=== PATIENT | female | born 1975 | race African-American/Black ===

== ENCOUNTER → 2019-07-02 | Outpatient (CLI) | payer OTHER | LOC: RAD 08:57 | DX: M53.3 Sacrococcygeal disorders, not elsewhere classified (principal) ==

== ENCOUNTER → 2019-11-19 | Outpatient (CLI) | payer OTHER | LOC: LAB 09:40 | PROVIDERS: ATTEND Nurse Practitioner | DX: R05 Cough (principal); R53.83 Other fatigue; R11.0 Nausea; Z20.828 Contact with and (suspected) exposure to other viral communicable diseases ==

== ENCOUNTER → 2020-01-04 | Outpatient (CLI) | payer OTHER ==
[2020-01-04 13:11] LABS: % SATURATION 16 % (20-39); IRON 54 ug/dL (50-170); TIBC 339 ug/dL (250-450)
[2020-01-04 13:23] LABS: ALBUMIN 3.8 g/dL (3.4-5.0); ANION GAP 8 mmol/L (7-16); BUN 11 mg/dL (7-18); CALCIUM 8.8 mg/dL (8.5-10.1); CHLORIDE 103 mmol/L (98-107); CO2 29 mmol/L (21-32); CREATININE 0.8 mg/dL (0.6-1.0); GLUCOSE 83 mg/dL (74-106); POTASSIUM 4.1 mmol/L (3.5-5.1); SGOT 15 U/L (15-37); SGPT 20 U/L (30-65); SODIUM 140 mmol/L (136-145); TOTAL BILIRUBIN 0.4 mg/dL (0.2-1.0)
[2020-01-04 13:49] LABS: TSH 1.735 uIU/mL (0.358-3.740)
[2020-01-04 14:06] LABS: ABSOLUTE NEUTROPHILS 3.9 thou/uL (1.4-8.2); BASOPHILS 0.6 % (0.0-2.0); EOSINOPHILS 0.6 % (0.0-3.0); HEMATOCRIT 39.1 % (37.0-47.0); HEMOGLOBIN 12.9 gm/dL (12.0-15.0); LYMPHOCYTES 22.2 % (24.0-44.0); MCH 28.6 pg (26.0-34.0); MCHC 32.9 g/dL (28.0-37.0); MCV 86.9 fL (80.0-100.0); PLATELET COUNT 220 thou/uL (150-400); POLYS 69.6 % (36.0-66.0); WBC 5.6 thou/uL (4.0-11.0)
[2020-01-04 14:15] LABS: ESR (SEDRATE) 6 mm/hour (0-19)
[2020-01-06 10:08] LABS: ANA INTERPRETATION Negative (Negative); ANTI-DNA SCREEN <1 IU/mL (0-9); ANTI-RNP 0.2 AI (0.0-0.9)
== END ==
LOC: CAT 11:55
PROVIDERS: ATTEND Nurse Practitioner
DX: S32.2XXA Fracture of coccyx, initial encounter for closed fracture (principal); M47.814 Spondylosis without myelopathy or radiculopathy, thoracic region; L65.9 Nonscarring hair loss, unspecified; D64.9 Anemia, unspecified; E55.9 Vitamin D deficiency, unspecified; E53.8 Deficiency of other specified B group vitamins; R23.9 Unspecified skin changes; X58.XXXA Exposure to other specified factors, initial encounter; Y93.89 Activity, other specified; Y92.89 Other specified places as the place of occurrence of the external cause; Y99.8 Other external cause status

== ENCOUNTER → 2020-02-29 | Outpatient (CLI) | payer OTHER | LOC: LAB 09:30 | PROVIDERS: ATTEND Nurse Practitioner | DX: Z20.828 Contact with and (suspected) exposure to other viral communicable diseases (principal) ==

== ENCOUNTER → 2020-04-25 | Outpatient (CLI) | payer OTHER | LOC: CAT 13:18 | PROVIDERS: ATTEND Internal Medicine Cardiovascular Disease | DX: Z13.6 Encounter for screening for cardiovascular disorders (principal); I25.10 Atherosclerotic heart disease of native coronary artery without angina pectoris; E78.00 Pure hypercholesterolemia, unspecified ==

== ENCOUNTER → 2020-05-12 | Outpatient (CLI) | payer OTHER ==
[2020-05-12 08:21] LABS: HEMATOCRIT 39.2 % (37.0-47.0); HEMOGLOBIN 12.8 gm/dL (12.0-15.0); MCH 27.9 pg (26.0-34.0); MCHC 32.6 g/dL (28.0-37.0); MCV 85.4 fL (80.0-100.0); RBC 4.59 mil/uL (4.20-5.00); RDW 14.9 % (10.5-14.5); WBC 4.8 thou/uL (4.0-11.0)
[2020-05-12 08:41] LABS: ALBUMIN 3.7 g/dL (3.4-5.0); ANION GAP 9 mmol/L (7-16); BUN 15 mg/dL (7-18); CALCIUM 9.2 mg/dL (8.5-10.1); CHLORIDE 106 mmol/L (98-107); CHOLESTEROL 168 mg/dL (<200); CO2 29 mmol/L (21-32); CREATININE 0.9 mg/dL (0.6-1.0); GLUCOSE 81 mg/dL (74-106); HDL CHOLESTEROL 84 mg/dL (>40); LDL CHOLESTEROL 75 mg/dL (<100); POTASSIUM 4.1 mmol/L (3.5-5.1); SGOT 13 U/L (15-37); SGPT 18 U/L (30-65); SODIUM 144 mmol/L (136-145); TOTAL BILIRUBIN 0.6 mg/dL (0.2-1.0); TOTAL PROTEIN 6.6 g/dL (6.4-8.2); TRIGLYCERIDE 47 mg/dL (<150); VLDL 9 mg/dL (<40)
[2020-05-12 09:09] LABS: FOLIC ACID 15.7 ng/mL (8.6-58.9)
== END ==
LOC: LAB 07:48
PROVIDERS: ATTEND Surgery
DX: R11.2 Nausea with vomiting, unspecified (principal); R63.4 Abnormal weight loss; Z98.84 Bariatric surgery status

== ENCOUNTER → 2020-05-18 | Outpatient (CLI) | payer OTHER | LOC: CAT 07:20 | DX: R63.4 Abnormal weight loss (principal); Z98.84 Bariatric surgery status; N83.202 Unspecified ovarian cyst, left side ==

== ENCOUNTER → 2020-06-02 | Outpatient (CLI) | payer OTHER ==
[~2020-06-02] MED LIST: DEPAKOTE ER250 MG PO; MULTI-DAY PLUS1 EACH PO; STRATTERA100 MG PO
== END ==
LOC: LAB 13:58
PROVIDERS: ATTEND Surgery
DX: Z01.812 Encounter for preprocedural laboratory examination (principal); Z20.822 Contact with and (suspected) exposure to COVID-19

== ENCOUNTER 2020-06-07 09:39 | Day surgery (SDC) | payer OTHER ==
[~2020-06-07] VITALS: Ht 160 cm; Wt 52.6 kg
--- NOTE | ~2020-06-07 | O ---
[facility] [place] [address] OPERATIVE REPORT Name: FREDERICK BRYANT Room #: 150-4 [facility] M.R.#: [id number] Admission: 06/07/20 Attend Phys: Keyon Rahman MD Discharge: Date of : 77 Report #: [id number] THIS REPORT FOR: cc: Renu Up Beth RNP Joseph, Sigi P. MD ~ DATE OF SERVICE: 06/07/2020 PREOPERATIVE DIAGNOSES: Suspected intussusception, history of gastric sleeve. POSTOPERATIVE DIAGNOSIS: Negative diagnostic laparoscopy. OPERATIVE PROCEDURE DONE: Diagnostic laparoscopy. 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 CT scan that was done showed features of questionable intussusception. The patient was advised diagnostic laparoscopy. The patient showed understanding and agreed to proceed. DESCRIPTION OF PROCEDURE: After explaining to the patient in detail and informed consent was obtained, the patient was identified in the preoperative holding area. The patient was transferred to the operating room and was placed in supine position. Sequential compressive devices were placed for DVT prophylaxis. Preoperative antibiotics were given. After induction of anesthesia, the abdomen was prepped and draped in a sterile fashion. Through a right upper quadrant 1 cm incision and using Optiview technique, peritoneal cavity was entered and pneumoperitoneum was created. Thereafter, under direct vision, another 5 mm trocar was placed in the right mid abdomen, another 5 mm trocar was placed in the left mid abdomen. On initial inspection, there were few adhesions in the left lobe of the liver. On evaluating the gastric sleeve, this appeared normal. There was no evidence of any hiatal hernia. I then inspected the small bowel from the ligament of Treitz distally after the terminal ileum, which was done twice. I also inspected the colon, which all appeared unremarkable. The spleen appeared normal. The liver appeared normal. The abdomen was then deflated. Incisions were then closed with 4-0 Monocryl. Dermabond was applied. The patient was stable at the end of the procedure. The patient was awoken from anesthesia and was transferred to the recovery room in stable condition. ESTIMATED BLOOD LOSS: Approximately 5 mL. CONDITION OF THE PATIENT: Stable. [address] [address] OPERATIVE REPORT Name: FREDERICK BRYANT Room #: 150-4 [facility]#: [id number] Admission: 06/07/20 Attend Phys: Keyon Rahman MD Discharge: Date of : 77 Report #: [id number] FLUIDS GIVEN: Per anesthesia notes. SPECIMEN SENT: None. COMPLICATIONS: None. ANESTHESIA: General anesthesia. By: [id number] Keyon Rahman MD /nt
== END 2020-06-07 13:02 | disposition home or self-care (01) ==
LOC: OR 09:39 → TBA 09:49 → OR 13:02
PROVIDERS: ATTEND Surgery
DX: R10.10 Upper abdominal pain, unspecified (principal); K66.0 Peritoneal adhesions (postprocedural) (postinfection); Z98.84 Bariatric surgery status; Z90.49 Acquired absence of other specified parts of digestive tract; F41.9 Anxiety disorder, unspecified; F32.9 Major depressive disorder, single episode, unspecified; F90.9 Attention-deficit hyperactivity disorder, unspecified type; Z88.8 Allergy status to other drugs, medicaments and biological substances; Z88.0 Allergy status to penicillin
CPT/HCPCS: 50010; 50101; 50411; 50555; 50558; 51489; 52265; 52266; 53310; 54022; 54118; 56525; 56526; 62110; 62900; 70005

== ENCOUNTER → 2020-06-09 | Outpatient (CLI) | payer OTHER ==
[2020-06-09 12:01] LABS: % SATURATION 9 % (20-39); IRON 32 ug/dL (50-170); TIBC 365 ug/dL (250-450)
== END ==
LOC: LAB 09:52
PROVIDERS: ATTEND Nurse Practitioner
DX: E55.9 Vitamin D deficiency, unspecified (principal); R79.89 Other specified abnormal findings of blood chemistry; R63.4 Abnormal weight loss

== ENCOUNTER → 2020-08-29 | Outpatient (CLI) | payer OTHER | LOC: RAD 10:04 | PROVIDERS: ATTEND Nurse Practitioner | DX: M71.22 Synovial cyst of popliteal space [Baker], left knee (principal); M25.78 Osteophyte, vertebrae; M47.816 Spondylosis without myelopathy or radiculopathy, lumbar region ==

== ENCOUNTER → 2020-11-23 | Outpatient (CLI) | payer OTHER | LOC: MRI 10:18 | PROVIDERS: ATTEND Orthopaedic Surgery | DX: M71.22 Synovial cyst of popliteal space [Baker], left knee (principal) ==

== ENCOUNTER → 2021-06-21 | Outpatient (CLI) | payer OTHER | LOC: SJCVCIMAG 08:49 | PROVIDERS: ATTEND Internal Medicine Cardiovascular Disease | DX: Z13.6 Encounter for screening for cardiovascular disorders (principal) ==